=== PATIENT | male | born 2000 | race Caucasian/White ===

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

== ENCOUNTER 2023-01-25 19:01 | Emergency (ER) | payer OTHER ==
[2023-01-25] MEDS ORDERED: Lidocaine 1% (PF) 30 ML VIAL ONE (19:53)
[2023-01-25] MEDS ORDERED: Sterile Water 10 ML ONE (21:11)
[2023-01-25] MEDS ORDERED: CEFAZOLIN 1 GM VIAL ONE (21:11)
[2023-01-25] MEDS ORDERED: Bacitracin 1 PK ONE (21:38)
== END 2023-01-25 21:45 | disposition home or self-care (01) ==
LOC: MADERS 19:01
DX: S81.811A Laceration without foreign body, right lower leg, initial encounter (principal); F17.290 Nicotine dependence, other tobacco product, uncomplicated; W25.XXXA Contact with sharp glass, initial encounter; Y93.01 Activity, walking, marching and hiking; Y92.89 Other specified places as the place of occurrence of the external cause
CPT/HCPCS: 12002; 96372; J0690; J2001

== ENCOUNTER 2023-08-18 10:34 | Emergency (ER) | payer OTHER, SELFPAY ==
[2023-08-18] MEDS ORDERED: Ibuprofen 800 MG TAB ONE (11:06)
[2023-08-18] MEDS ORDERED: Cyclobenzaprine 10 MG TAB ONE (11:06)
== END 2023-08-18 11:10 | disposition home or self-care (01) ==
LOC: MADERS 10:34
DX: S29.012A Strain of muscle and tendon of back wall of thorax, initial encounter (principal); S49.92XA Unspecified injury of left shoulder and upper arm, initial encounter; M62.838 Other muscle spasm; X50.9XXA Other and unspecified overexertion or strenuous movements or postures, initial encounter
CPT/HCPCS: 99283